=== PATIENT | female | born 1960 | race Caucasian/White ===

== ENCOUNTER 2023-02-28 08:01 | Day surgery (SDC) | payer OTHER ==
[~2023-02-28] VITALS: Ht 165.1 cm; Wt 68.0 kg
[2023-02-28] MEDS ORDERED: MEPERIDINE 100 MG INJ. 100 MG/ML VIAL ONE (08:29)
[2023-02-28] MEDS ORDERED: MIDAZOLAM HCL 5 MG/5 ML VIAL ONE ×2 (08:30→11:15)
[2023-02-28 12:24] VITALS: O2SAT 100
[2023-02-28 17:06] VITALS: BP_SYST 118; PULSE 60; RESP 12; TEMP 98
== END 2023-02-28 12:40 | disposition home or self-care (01) ==
LOC: SDS 08:01 → SMU 08:03 → SDS 12:40
PROVIDERS: ATTEND Internal Medicine Gastroenterology
DX: D64.9 Anemia, unspecified (principal); K29.50 Unspecified chronic gastritis without bleeding; K57.30 Diverticulosis of large intestine without perforation or abscess without bleeding; K64.8 Other hemorrhoids; K44.9 Diaphragmatic hernia without obstruction or gangrene; K21.9 Gastro-esophageal reflux disease without esophagitis; I10 Essential (primary) hypertension; E78.5 Hyperlipidemia, unspecified; Z98.84 Bariatric surgery status; Z79.899 Other long term (current) drug therapy
CPT/HCPCS: 45378; 43239; 99152; 87081; 36415; 88305; 88312; 88313; 99153; G0378; J2250; J2175